=== PATIENT | female | born 1960 | race Hispanic/Latino ===

== ENCOUNTER 2017-12-17 22:33 | Emergency (ER) | payer BC ==
[2017-12-17 23:17] LABS: Basophils % (Auto) 0.5 % (0.0-1.8); Eosinophils % (Auto) 0.1 % (0.0-4.3); Hematocrit 43.5 % (30.3-42.9); Hemoglobin 14.3 gm/dl (10.1-14.3); Lymphocytes # (Auto) 0.6 K/mm3 (1.2-5.4); Lymphocytes % (Auto) 11.4 % (13.4-35.0); Mean Corpuscular HGB Conc 33 % (30-34); Mean Corpuscular Hemoglobin 30 pg (28-32); Mean Corpuscular Volume 91 fl (79-97); Monocytes # (Auto) 0.3 K/mm3 (0.0-0.8); Platelet Count 224 K/mm3 (140-440); Red Blood Count 4.81 M/mm3 (3.65-5.03); Red Cell Distribution Width 12.8 % (13.2-15.2)
[2017-12-17 23:34] LABS: Alanine Aminotransferase 11 units/L (7-56); Albumin 4.4 g/dL (3.9-5); BUN/Creatinine Ratio 22; Blood Urea Nitrogen 13 mg/dL (7-17); Calcium 9.3 mg/dL (8.4-10.2); Hemolysis Index 2
--- NOTE | 2017-12-18 00:25 | Cat Scan Report ---
FINAL REPORT EXAM: CT HEAD/BRAIN WO CON HISTORY: migraine htn TECHNIQUE: Routine axial imaging was obtained of the brain without IV contrast. FINDINGS: There is no evidence of acute stroke or hemorrhage. The ventricular system is appropriate in size and is symmetric. The mastoid air cells are well pneumatized. The visualized sinuses are clear. The calvarium appears intact. IMPRESSION: Within normal limits.
[2017-12-18] MEDS ORDERED: TORADOL ONE (04:18)
[2017-12-18] MEDS ORDERED: REGLAN ONE (04:18)
[2017-12-18] MEDS ORDERED: BENADRYL ONE (04:18)
[2017-12-18] MEDS ORDERED: REGLAN IV ONE (04:43)
[2017-12-18] MEDS ORDERED: TORADOL IV ONE (04:43)
[2017-12-18] MEDS ORDERED: NACL 0.9% 1000 ML 1,000 ML IV ONE (04:43)
[2017-12-18] MEDS ORDERED: BENADRYL IV ONE (04:43)
[2017-12-18] MEDS ORDERED: ZOFRAN ODT PO ONE (06:58)
[2017-12-18] MEDS ORDERED: ZESTRIL PO ONE (06:58)
[2017-12-18] MEDS ORDERED: NORCO 10/325 PO ONE (06:58)
--- NOTE | 2017-12-18 07:04 | Emergency Department Report ---
ED Headache HPI - General Chief Complaint: Headache Stated Complaint: H/A' N/V Time Seen by Provider: 12/18/17 06:20 - History of Present Illness Initial Comments: Patient with acute onset of typical migraine-like headache while on flight from [place] here to [place], with bilateral retro-orbital throbbing aching pain , which radiated occipitally, approximately 2-3 hours prior to arrival to emergency department. She has a one-month history of onset of typical pains, which have been occurring on an almost daily basis, she has had evaluation by her primary care doctor in [place], was diagnosed with high blood pressure at that time, and was treated on the basis of correcting sleep, and taking Xanax at bedtime, which has helped somewhat. She's never had any focal neurologic symptoms, she does not have any fever, early trauma was approximately a year ago, when she struck her head and a fall, but with no known neurologic sequelae. 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 She does not use any recreational drugs, does not smoke, or drink alcohol. She was treated with Reglan and Toradol while awaiting my examination, reports most of her headache is gone, has mild throbbing behind the eyes. She is quite concerned about her blood pressure as cause of her headaches, but has not had formal neurologic evaluation for her headaches. Blood pressure was noted to be 188/101 on arrival , patient reported pain quite severe, being throbbing, retro-orbital, radiating to the occiput, and 10 out of 10 in severity Timing/Duration: 1-3 hours Quality: achy, pressure, throbbing, other Head Injury Location: other Recent Head Trauma: frequent headaches, chronic headaches Modifying Factors: improves with: other Associated Symptoms: facial pain, nausea/vomiting. denies: confusion, fatigue, nasal congestion, seizures, stiff neck Allergies/Adverse Reactions: Allergies No Known Allergies Allergy (Verified 12/17/17 22:38) Home Medications: Ambulatory Orders HYDROcodone/APAP 10-325 [[place] 10-325 mg TAB] 1 each PO Q6HR PRN 20 Days tablet 12/18/17 Lisinopril [Zestril TAB] 5 mg PO QDAY #30 tablet 12/18/17 Ondansetron [Zofran ODT TAB] 8 mg PO Q8HR PRN #10 tab.rapdis 12/18/17 Prochlorperazine(Nf) [Compazine (Nf)] 25 mg NC Q12H PRN #2 supp 12/18/17 ED Review of Systems ROS: Stated complaint: H/A' N/V Other details as noted in HPI Comment: All other systems reviewed and negative Constitutional: denies: chills, fever Eyes: denies: eye pain, eye discharge, vision change ENT: denies: ear pain, throat pain Respiratory: denies: cough, shortness of breath, wheezing Cardiovascular: denies: chest pain, palpitations Endocrine: no symptoms reported Gastrointestinal: denies: abdominal pain, nausea, diarrhea Genitourinary: denies: urgency, dysuria, discharge Musculoskeletal: denies: back pain, joint swelling, arthralgia Skin: denies: rash, lesions Neurological: denies: headache, weakness, paresthesias Psychiatric: denies: anxiety, depression Hematological/Lymphatic: denies: easy bleeding, easy bruising ED Past Medical Hx - Past Medical History Previous Medical History?: Yes Hx Hypertension: Yes Hx Headaches / Migraines: Yes Additional medical history: chronic Aleyda Chairez Virus - Surgical History Past Surgical History?: No - Family History Family history: no significant - Social History Smoking Status: Never Smoker Substance Use Type: None - Medications Home Medications: Home Medications Medication Instructions Recorded Confirmed Last Taken Type HYDROcodone/APAP 10-325 [[place] 1 each PO Q6HR PRN 20 Days tablet 12/18/17 Unknown Rx 10-325 mg TAB] Lisinopril [Zestril TAB] 5 mg PO QDAY #30 tablet 12/18/17 Unknown Rx Ondansetron [Zofran ODT TAB] 8 mg PO Q8HR PRN #10 tab.rapdis 12/18/17 Unknown Rx Prochlorperazine(Nf) [Compazine 25 mg NC Q12H PRN #2 supp 12/18/17 Unknown Rx (Nf)] ED Physical Exam - General Limitations: No Limitations General appearance: alert, in no apparent distress - Head Head exam: Present: atraumatic, normocephalic - Eye Eye exam: Present: normal appearance, PERRL, EOMI - ENT ENT exam: Present: normal exam, mucous membranes moist - Neck Neck exam: Present: normal inspection, full ROM. Absent: tenderness - Respiratory Respiratory exam: Present: normal lung sounds bilaterally. Absent: respiratory distress - Cardiovascular Cardiovascular Exam: Present: regular rate, normal rhythm. Absent: systolic murmur, diastolic murmur, rubs, gallop - GI/Abdominal GI/Abdominal exam: Present: soft, normal bowel sounds - Extremities Exam Extremities exam: Present: normal inspection - Back Exam Back exam: Present: normal inspection - Neurological Exam Neurological exam: Present: alert, oriented X3 - Psychiatric Psychiatric exam: Present: normal affect, normal mood - Skin Skin exam: Present: warm, dry, intact, normal color. Absent: rash ED Course Vital Signs 12/17/17 12/18/17 12/18/17 22:40 04:10 04:40 Temperature 97.7 F Pulse Rate 83 Respiratory 16 16 Rate Blood Pressure 188/101 Blood Pressure 172/93 [Left] O2 Sat by Pulse 97 Oximetry 12/18/17 06:23 Temperature Pulse Rate 67 Respiratory 18 Rate Blood Pressure Blood Pressure 145/78 [Left] O2 Sat by Pulse 98 Oximetry - Reevaluation(s) Reevaluation #1: 12/18/17 07:03 Blood pressure is 145/78, pulse is 82 and regular, respirations are normal. Patient is resting comfortably, napping at time of examination with and presents ED Medical Decision Making - Lab Data Result diagrams: 12/17/17 22:44 12/17/17 22:44 - Radiology Data Radiology results: report reviewed Normal CT scan of the brain with no evidence of acute fracture or intracranial pathology. - Medical Decision Making This patient is significantly improved with treatment during her emergency department visit, with headaches that are suggestive of migraine, but she does not appear to have an acute hypertensive crisis, and blood pressure has come down nicely with resolution of her pain. We had discussion about relationship between headaches and blood pressure, and likely relationship between pain and elevation of blood pressure. Nonetheless, patient feels comfortable with coverage for her blood pressure while she is out of town, and I will give her a short course of lisinopril for blood pressure management, as well as [place] for pain management, and Zofran for nausea, and Compazine suppositories if she has severe nausea or vomiting. She is stable, is going to be discharged, will be allowed to continue traveled, to make wedding in [place]. To follow up with doctor once she gets back home. - Differential Diagnosis migraine headache, intracranial hemorrhage, sinusitis Critical Care Time: No Critical care attestation.: If time is entered above; I have spent that time in minutes in the direct care of this critically ill patient, excluding procedure time. ED Disposition Clinical Impression: Headache Qualifiers: Headache type: other vascular headache Qualified Code(s): G44.1 - Vascular headache, not elsewhere classified Disposition: TO HOME OR SELFCARE Is pt being admited?: No Does the pt Need Aspirin: No Condition: Good Instructions: Migraine Headache (ED), Ibuprofen (By mouth) Additional Instructions: Diagnosis: Headache, migraine, elevated blood pressure You may continue your activities, but we recommend that you sleep well, limited amounts of stress, and drink plenty fluids to maintain hydration. Ice packs can be applied were sore, 15-30 minutes at a time, 3-4 times per day, while there is still remaining headache. We recommend that you take ibuprofen or Aleve regularly over the next 3-5 days, and we recommend 600 mg of ibuprofen 3 times per day, or 500 mg of Aleve twice daily. Take [place] for more severe pain, which can be taken every 4-6 hours. Ondansetron is a tablet that dissolves under the tongue, and can be repeated every 8 hours as needed for nausea Or severe nausea and vomiting, Compazine suppository can be applied rectally twice daily. Rest when having pain, and drink small amounts of fluids on a regular basis to maintain hydration. We are prescribing lisinopril, to take once daily for your blood pressure maintenance. Have repeat examination by your doctor once home in [place]. Prescriptions: HYDROcodone/APAP 10-325 [[place] 10-325 mg TAB] 1 each PO Q6HR PRN 20 Days tablet PRN Reason: Pain Lisinopril [Zestril TAB] 5 mg PO QDAY #30 tablet Ondansetron [Zofran ODT TAB] 8 mg PO Q8HR PRN #10 tab.rapdis PRN Reason: Nausea And Vomiting Prochlorperazine(Nf) [Compazine (Nf)] 25 mg NC Q12H PRN #2 supp PRN Reason: Nausea And Vomiting Referrals: PRIMARY CARE,MD [Primary Care Provider] - 3-5 Days Forms: Accompanied Note, Work/School Release Form(ED) Time of Disposition: 07:12
[2017-12-18 09:45] VITALS: BP 127/83
== END 2017-12-18 07:45 | disposition home or self-care (01) ==
LOC: ED 22:33
DX: G44.1 Vascular headache, not elsewhere classified (principal); I10 Essential (primary) hypertension
CPT/HCPCS: 36415; 70450; 80053; 85025; 96361; 96374; 96375; 99284; J1200; J1885; J2765; J7030